=== PATIENT | male | born 1960 | race Caucasian/White ===

== ENCOUNTER 2016-11-01 08:51 | Inpatient (IN) | payer MEDICAID ==
[~2016-11-01] VITALS: Ht 185.4 cm; Wt 83.1 kg
[~2016-11-01 08:51] MED LIST: ASPIRIN PO; CLINDAMYCIN300 M1 PO; GLU10 PO; GLU500 PO; JANUVIA100 M1 PO; KEFLEX500 MG PO; LAC PO; LISINOPRIL20 MG PO; NAPROXEN500 MG PO
--- NOTE | 2016-11-01 09:04 | NUR ---
Prmiary nurse KRISTINA Oneil a bedside to perform assessment.
--- NOTE | 2016-11-01 09:15 | NUR ---
PT PRESENTS TO ED WITH C/O SOB, CONSTIPATION, AND SWELLING X 1 WEEK. PT STATES SWELLING STARTED IN HIS FACE, TRAVELED DOWN NECK, NOW HE SEE'S IT IN HIS ANKLES. UPON ASSESSMENT SWELLING NOTED TO FACE AND JAW, NO VISIBLE SWELLING IN ANKLES. PT REPORTS SOB, AT TIME OF ASSESSMENT RESP EQUAL AND UNLABORED, NO DISTRESS NOTED LUNG SOUNDS CLEAR HANNY IN ALL LUNG KLEIN. PT REPORTS PASSING SM AMOUNT OF STOOL YESTERDAY, BUT LAST REGULAR BOWEL MOVEMENT WAS 1 WEEK AGO. PT C/O GEN ABD PAIN, DENIES N/V, ABD SOFT TO PALPATION. PT CHANGED INTO GOWN, CONNECTED TO CARDIORESP MONITORS, DR FRANKLIN AT BEDSIDE FOR MSE.
[2016-11-01 09:27] LABS: BASOPHIL % 0.4 % (0-2); PLATELET COUNT 247 x10^3mcL (130-400)
[2016-11-01 09:28] LABS: RED CELL DISTRIBUTION WIDTH 16.9 % (11.5-14.5)
[2016-11-01 09:42] LABS: CALCIUM 8.4 mg/dL (8.5-10.1); CARBON DIOXIDE 26.4 mmol/L (21-32); CHLORIDE SERUM 105 mmol/L (98-107); CREATININE SERUM 0.8 mg/dL (0.7-1.3); GFR1 > 60 mL/min; GLUCOSE SERUM 213 mg/dL (74-106); POTASSIUM SERUM 3.9 mmol/L (3.5-5.1); SODIUM SERUM 139 mmol/L (136-145)
[2016-11-01 09:46] LABS: ALKALINE PHOSPHATASE 176 U/L (46-116); ALT/SGPT 22 U/L (16-63); AST/SGOT 20 U/L (15-37); BILIRUBIN TOTAL 1.22 mg/dL (0.20-1.00); TOTAL PROTEIN, SERUM 6.5 g/dL (6.4-8.2)
[2016-11-01 09:49] LABS: ALBUMIN 2.4 g/dL (3.4-5.0)
--- NOTE | 2016-11-01 10:53 | NUR ---
REPORT CALLED TO ALBERTINA ACEVEDO TO ASSUME CARE OF OT POST TRANSFER TO TELE UNIT.
[2016-11-01 11:25] LABS: UA SPECIFIC GRAVITY 1.025 (1.005-1.035); microscopic required? YES; urine erythrocyte 3+ (NEGATIVE)
--- NOTE | 2016-11-01 11:30 | NUR ---
PATIENT RECIEVED AT THIS TIME VIA [facility]. ACCOMPANIED BY ER NURSE. PATIENT ABLE TO AMBULATE FROM [facility] TO BED SAFELY. PLACED ON TELE #23 HR(106) BP(159/116) MAP(132) TEMP(98.3) O2(98%RA). IV TO THE LAC SALINE LOCK WITHIN NORMAL LIMITS. SCDS PLACED, EDUCATION ON USE PROVIDED. STUDENT DOCTORS AT BEDSIDE. ALL SAFETY MEASURES IN PLACE AND REVIEWED. WILL CONTINUE TO MONITOR.
[2016-11-01 11:55] LABS: CHOLESTEROL/HDL RATIO 3.6; MAGNESIUM 1.7 mg/dL (1.8-2.4); PHOSPHOROUS 3.6 mg/dL (2.5-4.9)
[2016-11-01 11:59] LABS: T3 TOTAL 0.91 ng/mL
[2016-11-01 12:02] LABS: FREE T4 1.16 ng/dL (0.76-1.46); FREE THYROXINE INDEX 2.7 ug/dL (1.4-4.5); T4(THYROXINE) 7.7 ug/dL (4.7-13.3)
[2016-11-01 12:42] VITALS: BP 130/78
--- NOTE | 2016-11-01 12:52 | NUR ---
echocardiogram pending patient having ultrasound
[2016-11-01 13:12] VITALS: BP 159/116
--- NOTE | 2016-11-01 15:24 | NUR ---
DR ROMO IN TO ASSESS PATIENT AT THIS TIME. PATIENT AWAKE, ALERT, MOTHER AT BEDSIDE, NO SIGNS OF DISTRESS NOTED, WILL CONTINUE TO MONITOR.
[2016-11-01 15:33] LABS: AMPHETAMINE QUAL UR POSITIVE (NEG <=1000)
--- NOTE | 2016-11-01 18:10 | NUR ---
PATIENT AWAKE AND TALKING TO FAMILY AT BEDSIDE. NO SIGNS OF DISTRESS, NO SHORTNESS OF BREATH. ALL SAFETY MEASURES IN PLACE. WILL CONTINUE TO MONITOR.
[2016-11-01 18:29] VITALS: BP 128/94
--- NOTE | 2016-11-01 18:41 | NUR ---
IVF RATE CHANGED TO 10 ML/HR AT THIS TIME PER MD ORDER.
--- NOTE | 2016-11-01 19:14 | NUR ---
BEDSIDE REPORT GIVEN TO NOC SHIFT NURSE AT THIS TIME. PATIENT AWAKE, FAMILY AT BEDSIDE, ALL SAFETY MEASURES IN PLACE, WILL ENDORSE CARE.
--- NOTE | 2016-11-01 19:50 | NUR ---
REC'D PT FROM DAY NURSE. PT LAYING IN BED. AAOX4, SPEECH CLEAR, FOLLOWS COMMANDS. NO SIGNS OF DISTRESS NOTED. BREATHING EVEN/UNLABORED ON RA. ON TELE 23. DENIES CP, DIZZINESS, OR PALPITATIONS. TRACE EDEMA TO BLE. REPORTS SOME NUMBING TO HANNY HANDS AND FEET. DENIES ABD PAIN, TENDERNESS, OR N/V. REPORTS LOOSE STOOL. VOIDING FREELY. STRAINING URINE. MILD GEN WEAKNESS. AMBULATORY. BLE SKIN DRY AND FLAKEY. DENIES PAIN AT THIS TIME. CALL LIGHT WITHIN REACH, BED AT LOWEST POSITION. WILL CONTINUE TO MONITOR.
[2016-11-01 21:12] VITALS: BP 126/93
[2016-11-02] VITALS (11 sets, daily range): BP systolic 100–129; BP diastolic 75–100
--- NOTE | 2016-11-02 00:57 | NUR ---
PT RESTING IN BED WITH EYES CLOSED. LAYING ON R SIDE. NO SIGNS OF DISTRESS NOTED. BREATHING EVEN/UNLABORED ON RA. CALL LIGHT WITHIN REACH, BED AT LOWEST POSITION. WILL CONTINUE TO MONITOR.
[2016-11-02 06:20] LABS: BASOPHIL % 0.4 % (0-2); CALCIUM 8.1 mg/dL (8.5-10.1); CARBON DIOXIDE 25.8 mmol/L (21-32); CHLORIDE SERUM 107 mmol/L (98-107); CREATININE SERUM 0.8 mg/dL (0.7-1.3); GFR1 > 60 mL/min; GLUCOSE SERUM 160 mg/dL (74-106); MAGNESIUM 1.8 mg/dL (1.8-2.4); PHOSPHOROUS 4.2 mg/dL (2.5-4.9); PLATELET COUNT 190 x10^3mcL (130-400); POTASSIUM SERUM 3.9 mmol/L (3.5-5.1); SODIUM SERUM 141 mmol/L (136-145)
[2016-11-02 07:13] LABS: RED CELL DISTRIBUTION WIDTH 16.5 % (11.5-14.5)
--- NOTE | 2016-11-02 07:21 | NUR ---
ASLEEP AT CHANGE OF SHIFT, RESP EVEN AND UNLABORED.
--- NOTE | 2016-11-02 08:00 | NUR ---
PATIENT IS RESTING WITH FAMILY AT BEDSIDE. LUNG SOUNDS ARE CLEAR BUT DIMINISHED IN BILATERAL BASES, AND PATIENT COMPLAINS OF SOB. CHEST RISE IS SATING 93% PATIENT IS IN NO APPARENT DISTRESS, RR IS 20.PATIENT IS TELE 23 NSR. NO EDEMA NOTED, CAP REFILL IS LESS THAN 3. BOWEL SOUNDS ARE HYPERACTIVE AND PATIENT STATES DIARRHEA SINCE 11/01 X6. PATIENT IS ABLE TO AMBULATE SELF TO BATHROOM, GAIT IS STEADY. PATIENT INSTRUCTED ON USE OF URINAL IN ORDER TO STRAIN URINE. CALL LIGHT IS WITHIN REACH, BED IS LOCKED AND IN LOW POSTION AND SIDE RAILS ARE UP. SCDS ARE NOT ON DUE TO FREQUENT BATHROOM TRIPS
--- NOTE | 2016-11-02 08:42 | NUR ---
MOM BEDSIDE. REVIEWED AM MEDS, TOOK WITHOUT DIFFICULTY. EXPLAINED THORACENTESIS AND THAT DOCTOR WOULD BE IN ROOM SHORTLY TO EXPLAIN MORE THOROUGHLY. WITNESSED SIGNATURE ON CONSENT.
--- NOTE | 2016-11-02 08:57 | NUR ---
DR MALAVE IN TO SEE PATIENT AND MOM. EXPLAINED PROCEDURE, VERBALIZED UNDERSTANDING.
--- NOTE | 2016-11-02 09:22 | NUR ---
REPORTS SOME SOB, RT GIVING RX.
--- NOTE | 2016-11-02 10:30 | NUR ---
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 I AM MY SONS PRIMARY CAREGIVER AND I AM HAVING A REALLY HARD TIME WITH THINGS, AND WOULD LIKE TO KNOW ABOUT RESOURCES. ALSO MY SON HAS HAD A REALLY HARD TIME COPING WITH THINGS, HE IS DEPRESSED, HE GOT A DIVORCE, HIS THREE KIDS DO NOT WANT ANYTHING TO DO WITH HIM AND I KEEP TELLING HIM TO TALK TO SOMEONE, HE REALLY NEEDS HELP HE IS NOT COPING WELL AT ALL." MD TALAVERA NOTIFIED OF FAMILIES REQUEST AND STATED, "I WILL TAKE CARE OF IT."
--- NOTE | 2016-11-02 11:07 | NUR ---
PATIENT SLEEPING ON RIGHT SIDE, URINAL HAS APPROX 200 MLS OF URINE, STRAINED PER MD ORDER, NO PARTICLES NOTED. PATIENT AWOKE WHEN TAKING URINAL FROM BEDSIDE TABLE, ASKED HIM IF HE HAD PAIN ON URINATION, PATIENT DENIED. PATIENT INQUIRED ON REASON FOR STRAINING URINE. PATIENT EDUCATED, VERBALIZED UNDERSTANDING AND STATED, "MY BROTHER HAS PROBLEMS WITH STONES BUT I NEVER HAVE." CALL LIGHT IS WITHIN REACH, SIDE RAILS ARE UP, BED LOCKED AND IN LOW POSITION, AND URINAL IS RETURNED TO SIDE RAIL FOR PATIENT USE.
--- NOTE | 2016-11-02 12:00 | NUR ---
PATIENTS URINE WAS STRAINED, SMALL WHITE PARTICLE VISIBLE. PATIENT IS RESTING IN BED. PATIENT IS IN NO APPARENT DISTRESS, DENIES PAIN, AND SOB AT THIS TIME. CALL LIGHT IS WITHIN REACH, SIDE RAILS ARE UP AND BED IS LOCKED AND IN LOW POSITION.
--- NOTE | 2016-11-02 12:08 | NUR ---
SPOKE WITH ALEXANDER APODACA AND JULIO. MADE AWARE PATIENT REPORTS DEPRESSION DUE TO DISEASE PROCESS.
--- NOTE | 2016-11-02 12:20 | NUR ---
MOTHER MICHAELLE, REPORTS THAT SHE TAKES CARE OF PATIENT AND IS HAVING A HARD TIME FINANCIALLY AND IS REQUESTING TO SPEAK WITH [employer] FOR RESOURCES. SPOKE WITH CHIVO HAYDEN AND MADE HIM AWARE.
--- NOTE | 2016-11-02 12:50 | NUR ---
CATRACHO WALDRON SPOKE WITH MICHAELLE AND PATIENT.
--- NOTE | 2016-11-02 13:30 | NUR ---
HEPLOCKED TO GO TO THORACENTESIS. OFF FLOOR VIA WHEELCHAIR. SPOKE WITH DR TALAVERA TO SEE IF HE WANTS TO ORDER TESTS ON FLUID.
--- NOTE | 2016-11-02 14:15 | NUR ---
PATIENT RETURNED FROM THORACENTESIS PROCEDURE, 1650 ML REMOVED. PATIENT RESTING IN BED. PATIENT STATES HE CAN BREATHE EASIER, PULE OXYGEN READS 96%. SITE ASSESSED, NO DRAINAGE OR HEMATOMA NOTED. PATIENT STATES PAIN OF 3/10 HEADACHE, MD NOTIFIED AND WILL FOLLOW UP. CALL LIGHT IS WITHIN REACH, SIDE RAILS ARE UP, IV IS INFUSING. SITE IS CLEAR OF SWELLING, REDNESS AND PAIN.
--- NOTE | 2016-11-02 14:31 | NUR ---
SPOKE WITH DR TALAVERA CONCERNING WHETHER COUMADIN TO BE REORDERED TODAY, DIET ORDER AND MADE AWARE 650ML OUT.
--- NOTE | 2016-11-02 15:33 | NUR ---
DR. FINN IN TO SEE PATIENT. PATIENT NOT IN DISTRESS, CHEST RISE EVEN AND UNLABORED. CALL LIGHT IS WITHIN REACH, SIDE RAILS ARE UP AND BED IS LOCKED AND IN LOW POSITION.
--- NOTE | 2016-11-02 18:12 | NUR ---
AMBULATING IN ROOM, ATE DINNER, NO DISTRESS NOTED.
[2016-11-02 19:34] LABS: SOURCE FLUID THORACENTESIS
[2016-11-02 19:35] LABS: APPEARANCE FLUID HAZY; COLOR FLUID YELLOW; LYMPHOCYTE FLUID 56 %; MONOCYTE FLUID 8 %; RBC FLUID 46 /cumm; WBC FLUID 109 /cumm
--- NOTE | 2016-11-02 19:44 | NUR ---
PT SEEN, ASLEEP BUT EASILY AROUSABLE, ALERT AND ORIENTED, DENIES HEADACHE OR DIZZINESS, BREATHING EVEN AND UNLABORED, NO SOB, LUNG SOUNDS DIMINISHED WITH EXP WHEEZING, ON ROOM AIR WITH NO RESP DISTRESS NOTED, ON TELE#23 NSR, DENIES CHEST PAIN, IVF INFUSING WELL, PULSES PALPABLE, NO EDEMA NOTED, AMBULATORY WITH STEADY GAIT, ABD ROUND AND SOFT WITH ACTIVE BS, NO BM AT THIS TIME, VOIDING FREELY, NO DISTRESS NOTED, WILL KEEP TO MONITOR.
[2016-11-03] VITALS (9 sets, daily range): BP systolic 101–134; BP diastolic 68–97
--- NOTE | 2016-11-03 05:15 | NUR ---
PT ASLEEP BUT EASILY AROUSABLE, SLEPT MOST OF NIGHT, IVF INFUSING WELL, MORNING BLOOD SUGAR-170 MG/DL, MADE DR VALLADARES AWARE THAT PT IS NPO THIS MORNING DUE TO POSS US GUIDED THORACENTESIS, PER DR VALLADARES THAT OKAY TO HOLD GLUCOTROL PO AND RISS 3 UNITS, ON ROOM AIR WITH NO RESP DISTRESS NOTED, WILL KEEP TO MONITOR.
--- NOTE | 2016-11-03 05:31 | NUR ---
PT AWAKE AND WALKED TO THE RESTROOM, AFTER CAME BACK TO RESTROOM PT STATED THAT FEEL SOB, PT'S SPO2-96% ON ROOM AIR, PLACED PT ON OXYGEN 2L VIA NC, NO DISTRSS NOTED, WILL KEEP TO MONITOR.
[2016-11-03 06:26] LABS: CALCIUM 8.2 mg/dL (8.5-10.1); CARBON DIOXIDE 28.1 mmol/L (21-32); CHLORIDE SERUM 106 mmol/L (98-107); CREATININE SERUM 0.9 mg/dL (0.7-1.3); GFR1 > 60 mL/min; GLUCOSE SERUM 166 mg/dL (74-106); LACTIC DEHYDROGENASE (LDH) 246 U/L (100-190); POTASSIUM SERUM 3.7 mmol/L (3.5-5.1); SODIUM SERUM 142 mmol/L (136-145)
--- NOTE | 2016-11-03 08:23 | NUR ---
PATIENT IS LAYING DOWN IN BED. PATIENT IS IN NOT APPARENT DISTRESS, CHEST RISE IS EQUAL. PATIENT SAT UP IN BED, LUNGS AUSCULTATED, DIMINSHED BREATHE SOUNDS BILATERAL BASES, TOPS OF LUNGS ARE CLEAR. PATIENT DENIES PAIN, NAUSEA, BUT COMPLAINS OF DIARRHEA. WILL FOLLOW UP WITH MEDICATION. PATIENT HAS ACTIVE BOWEL SOUNDS IN ALL QUADRANTS. NO EDEMA NOTED, PULSES ARE PRESENT AND CAP REFILL IS LESS THAN 3 SECONDS. CALL LIGHT IS WITHIN REACH, SIDE RAILS ARE UP AND BED IS LOCKED.
--- NOTE | 2016-11-03 08:36 | NUR ---
DR MALAVE IN TO SEE PATIENT.
--- NOTE | 2016-11-03 10:08 | NUR ---
MOM ON FLOOR, REQUESTED TO SPEAK WITH . DR TALAVERA CURRENTLY TALKING WITH MOM.
--- NOTE | 2016-11-03 10:18 | NUR ---
PATIENT IS LAYING IN BED. PATIENT STATED IV IS "LEAKING" UPON ASSESSMENT IV LEAKING FLUID WHEN FLUSHED. IV CATHETER REMOVED, CATHETER TIP IS INTACT, SITE IS COVERED WITH GUAZE AND TAPE. PATIENT DENIES SOB, CHEST RISE IS EQUAL. CALL LIGHT IS WITHIN REACH, BED IS LOCKED AND IN LOW POSITION AND SIDE RAILS ARE UP.
--- NOTE | 2016-11-03 13:42 | NUR ---
FAMILY BEDSIDE, NO DISTRESS NOTED.
--- NOTE | 2016-11-03 14:18 | NUR ---
SPOKE WITH DR TALAVERA CONCERNING NO IV ACCESS, NO LONGER ON TELE. OKAY TO LEAVE IV OUT AND HE WILL SWITCH LASIX TO PO.
--- NOTE | 2016-11-03 14:21 | NUR ---
OFF FLOOR VIA WHEELCHAIR TO ULTRASOUND FOR THORACENTESIS.
--- NOTE | 2016-11-03 14:48 | NUR ---
PATIENT RETURNED TO FLOOR FROM RADIOLOGY. PATIENT RESTING IN BED. NO DRAINAGE, SWELLING, HEMATOMA NOTED. PATIENT DENIES SOB, AND PAIN. CHEST RISE IS EQUAL, AND UNLABORED. RADIOLOGY NURSE STATES 1100 ML OF FLUID WAS REMOVED. CALL LIGHT IS WITHIN REACH, SIDE RAILS ARE UP AND BED IS LOCKED.
--- NOTE | 2016-11-03 15:28 | NUR ---
US GUIDED THORACENTESIS COMPLETED BY DR VALERIO, SPECIMEN TO LAB; PER PATIENT'S NURSE JONNIE NO DIAGNOSTIC TESTS NEEDED ON TODAY'S SPECIMEN.
--- NOTE | 2016-11-03 15:54 | NUR ---
PATIENT IS RESTING, WATCHING TELEVISION, DENIES PAIN AT THIS TIME. LEFT BACKSIDE WHERE PROCEDURE ASSESSED, NO SWELLING, REDNESS OR DRAINAGE NOTED. NO SIGNS OF HEMATOMA OBSERVED. PATIENTS RR 16, UNLABORED AND EVEN. PATIENT DENIES SOB. CALL LIGHT IS WITHIN REACH, SIDE RAILS UP, BED LOCKED AND SCDS ARE IN PLACE.
--- NOTE | 2016-11-03 16:45 | NUR ---
PATIENT LAYING IN BED RESTING, WATCHING TELEVISION. PATIENT DENIES SOB, PAIN AND NAUSEA. LEFT BACKSIDE WHERE THORACENTESIS PERFORMED ASSESSED. SITE IS ABSENT OF DRAINAGE, REDNESS, SWELLING AND HEMATOMA. PATIENTS CHEST RISE IS EQUAL AND UNLABORED. PATIENT DOESNT APPEAR TO BE IN DISTRESS. CALL LIGHT IS WITHIN REACH, SIDE RAILS ARE UP, SCDS ARE ON AND BED IS LOCKED AND IN LOW POSITION.
--- NOTE | 2016-11-03 17:06 | NUR ---
RECEIVED CALL FROM LAB WANTING TO CONFIRM NO TESTS NEEDED ON FLUID REMOVED FROM TODAYS THORACENTESIS. CONFIRMED WITH DR TALAVERA, NO TESTS. LAB MADE AWARE.
--- NOTE | 2016-11-03 17:39 | NUR ---
ASSISTED WITH DINNER, NO DISTRESS NOTED.
--- NOTE | 2016-11-03 18:25 | NUR ---
CHIVO BUSTILLO BEDSIDE GIVING INFORMATION CONCERNING RESOURCES AFTER DISCHARGE.
--- NOTE | 2016-11-03 19:55 | NUR ---
PT SEEN, ASLEEP BUT EASILY AROUSABLE, ALERT AND ORIENTED, DENIES HEADACHE OR DIZZINESS, BREATHING EVEN AND UNLABORED, NO SOB, LUNG SOUNDS DIMINISHED HANNY BASE, ON ROOM AIR WITH NO RESP DISTRESS NOTED, RT PROTOCOL, DENIES CHEST PAIN, RE-INSERTED IV TO LFA, PULSES PALPABLE, NO EDEMA NOTED, AMBULATORY WITH STEADY GAIT, ABD ROUND AND SOFT WITH ACTIVE BS, NO BM AT THIS TIME, VOIDING FREELY, NO DISTRESS NOTED, WILL KEEP TO MONITOR.
--- NOTE | 2016-11-03 22:30 | NUR ---
CALLED RADIOLOGY REGARDING THAT PT HAD CXR ORDERED @ 1814, PER KEYBOARD SPECIALIST UNABLE TO HAVE CXR DONE AT THAT TIME DUE TO ER PTS, DR VALLADARES AWARE, PER KEYBOARD SPECIALIST WILL HAVE CXR DONE WITHIN 30 MINS.
--- NOTE | 2016-11-04 05:42 | NUR ---
PT AWAKE AT THIS TIME, SLEPT ON AND OFF WHOLE NIGHT, SL TO LFA, THIS MORNING BLOOD SUGAR-123 MG/DL WITH NO RISS, PT C/O OF BLE PAIN, NORCO 1 TAB VIA ORAL ADMINISTERED, NO BM DURING THE SHIFT, BREATHING EVEN AND UNLABORED ON ROOM AIR, NO SOB OR RESP DISTRESS NOTED, NO DISTRESS NOTED, WILL KEEP TO MONITOR.
[2016-11-04 06:22] VITALS: BP 127/58
[2016-11-04 06:30] LABS: CALCIUM 8.4 mg/dL (8.5-10.1); CARBON DIOXIDE 29.6 mmol/L (21-32); CHLORIDE SERUM 106 mmol/L (98-107); CREATININE SERUM 0.9 mg/dL (0.7-1.3); GFR1 > 60 mL/min; GLUCOSE SERUM 108 mg/dL (74-106); POTASSIUM SERUM 4.3 mmol/L (3.5-5.1); SODIUM SERUM 141 mmol/L (136-145)
--- NOTE | 2016-11-04 08:00 | NUR ---
RECEIVED PATIENT ALERT AND ORIENTED TIMES FOUR. PATIENT DENIES PAIN AT THIS TIME BUT STATE HE HAS NEUROPATHY AND HE DID NOT SLEEP WELL LAST NIGHT TILL RECEIVED NORCO FOR PAIN. PATIENT STATES HE WOKE UP SEVERAL TIMES AND JUST COULD NOT SLEEP. LAST BLOOD SUGAR WAS AT 123 AND PATIENT TOLERATED DIET AND FLUDIS AND ATE EVERYTHING ON THE TRAY THIS AM. HE DID NOT REQUEST MORE FOOD THOUGH. PATIENT HAS AN AIC AT 8.9 AND IS CLEARLY NOT TAKING HIS MEDICATION OR FOLLOWING HIS DIET DIRRECTED. PATIENT HAS NOTED VERY DRY AND SCALEY SKIN TO THE LOWER EXTREMTIES AND MINIMAL. TRACE EDEAM NOTED. PATIENT SKIN PALLOR IS PALE AND HE SEEMS HE IS UNDERWEIGHT FOR HIS SIZE. VITALS AT THIS TIME AT 98.0, 86, 20, 127/56, 99% ON ROOM AIR. PATIENT HAS NOTED TO HAVE USED METHA AMPHETAMINES AND WAS PRESENT IN HIS URINE. PATIENT HAS NOTED TO BE A SMOKER WELL. THE LUNGS ARE OPEN AND WITH SOME SCATTER RALES BUT HE IS TOLERATING A DEEP BREATH AND DOES NOT APPEAR LABORED AT THIS TIME. PATIENT AHS BEEN AMBLATORY AND DENIES USE OF A CANE OR DEVICE AT HOME. NOTED PATIETN HAS BEEN WITH TWO THROACENTESIS AND HAD BEEN TO EITHER SIDE WITH OUTPUT AT 1100ML AND 1650ML. PATINET HAS ONE BANDAID TO THE LEFT FLANK OF THE BACK AND NO DRAINAGE NOTED. PATIENT AHS NOTED RENAL CALCULI AND HAVE BEEN STRAINING URINE INDICATE.D ON FLOWMAX AND LASIX. NOTE DLASO THE CARDIAC ISSUES OF EJECTION FRACTION CHANGES IN THE FEW MONTHS FROM 55% TO NOW AT 20%. DR ROMO, HUMA AND ERIN ON THE CASE FOR IS ISSUES. POSSIBLE DISCHARGE HOME PLANNED FOR TODAY.
--- NOTE | 2016-11-04 09:41 | NUR ---
SEEN BY DR MALAVE AND STAFF AND PLAN OF CARE DISCUSSED. PATIENT DENIES ANY PAIN OR DISTRESS AT THIS TIME. HE HAS BEEN SO FAR COOPERATIVE WITH CARE. REFUSED THE GLUCOPHAGE THIS AM AND STATES HE RECEIVED ALREADY. IT WAS NOT SCANNED AND WAS NOT DUE TO BREAKFAST. BASICALY THE PATIENT WENT ON TO INDICATE THE GLYPIZIDE HE RECEIVED WAS POWERFUL AND HE FELT HE MAY BE RECEIVING TOO MUCH FOR HIS DIABETES AND IS WORRIED HIS SUGAR WILL DROP. HELD THE GLUCOPHAGE PER HIS STATEMENT. PER HIM HE RECEIVED WITH THE GLYPIZIDE THIS AM FROM THE PREVIOUS SHIFT.
[2016-11-04 10:06] VITALS: BP 120/89
[2016-11-04] MEDS ORDERED: L40 PO (10:11)
[2016-11-04] MEDS ORDERED: CYMBALTA30 M1 PO (10:12)
[2016-11-04] MEDS ORDERED: ZES20 PO (10:13)
[2016-11-04] MEDS ORDERED: COR3 PO (10:15)
[2016-11-04] MEDS ORDERED: COUMADIN2.5 MG PO (10:22)
[2016-11-04] MEDS ORDERED: NOR10 PO (10:47)
[2016-11-04] MEDS ORDERED: LIPI20 PO (10:48)
[2016-11-04 10:49] VITALS: BP 127/58
[2016-11-05] MEDS ORDERED: COUMADIN2.5 MG PO (11:36)
[2016-11-05] MEDS ORDERED: COREG3.125 MG PO (11:36)
[2016-11-05] MEDS ORDERED: ZESTRIL20 MG PO (11:38)
[2016-11-05] MEDS ORDERED: CYMBALTA30 M1 PO (11:38)
[2016-11-05] MEDS ORDERED: LASIX20 MG PO (11:38)
== END 2016-11-04 13:00 | disposition home or self-care (01) | DRG 194 ==
LOC: ED 08:51 → DU 10:26 → MU 10:26 → DU 11:15 → MU 11:27 → DU 11:35 → MU 11-03 07:10
PROVIDERS: Emergency Medicine; ADMIT Family Medicine
PROC: 0W993ZZ Drainage of Right Pleural Cavity, Percutaneous Approach (ICD-10-PCS; principal; 2016-11-02)
PROC: 0W9B3ZZ Drainage of Left Pleural Cavity, Percutaneous Approach (ICD-10-PCS; 2016-11-03)
DX: I11.0 Hypertensive heart disease with heart failure (principal); N17.0 Acute kidney failure with tubular necrosis; E43 Unspecified severe protein-calorie malnutrition; D68.69 Other thrombophilia; I24.0 Acute coronary thrombosis not resulting in myocardial infarction; E11.42 Type 2 diabetes mellitus with diabetic polyneuropathy; E11.65 Type 2 diabetes mellitus with hyperglycemia; I42.0 Dilated cardiomyopathy; I50.43 Acute on chronic combined systolic (congestive) and diastolic (congestive) heart failure; F15.129 Other stimulant abuse with intoxication, unspecified; F12.10 Cannabis abuse, uncomplicated; E83.42 Hypomagnesemia; R80.9 Proteinuria, unspecified; F32.9 Major depressive disorder, single episode, unspecified; K59.00 Constipation, unspecified; G89.29 Other chronic pain; N20.0 Calculus of kidney; R31.9 Hematuria, unspecified; M47.896 Other spondylosis, lumbar region; Z68.24 Body mass index [BMI] 24.0-24.9, adult; Z79.84 Long term (current) use of oral hypoglycemic drugs; F17.210 Nicotine dependence, cigarettes, uncomplicated
CPT/HCPCS: 32555; 83880; 84439; 94150; 97110-GP; 97116-GP; C1729; J0696; J1940; J2001; J7030; J7620; Q0092

== ENCOUNTER 2016-11-05 09:13 | Inpatient (IN) | payer MEDICAID ==
[~2016-11-05] VITALS: Ht 185.4 cm; Wt 80.0 kg
[~2016-11-05 09:13] MED LIST changes: +COR3 PO; +COUMADIN2.5 MG PO; +CYMBALTA30 M1 PO; +L40 PO; +LIPI20 PO; +NOR10 PO; +ZES20 PO
--- NOTE | 2016-11-05 09:30 | NUR ---
PORTABLE RADIOLOGY AT BEDSIDE FOR CXR AT THIS TIME
--- NOTE | 2016-11-05 09:41 | NUR ---
PT BIB FAMILY MEMBER FOR C/O LEFT SIDE CHEST PAIN 05/16 "SHARP" NON RADIATING THAT PT REPORTS HAS BEEN INTERMITTENT, STS STARTED 1 WEEK AGO AND REPORTS WORSENED SINCE 0400 IN THE MORNING, PT REPORTS WOKE UP FROM PAIN, STS FEELING SHORT OF BREATH AND ALSO REPORTS "I SOMETIMES HAVE TROUBLE TALKING TOO" PT SPEAKING IN CLEAR AND COMPLETE SENTENCES AND NO SOB NOTED AT THIS TIME, PT REPORTS HE WAS RECENTLY DISCHARGED FROM HERE FOR SAME SX, PT REPORTS "THEY TOOK OUT FLUID FROM BACK THERE" POINTING AT LEFT AND RIGHT SIDE OF UPPER BACK, PT LS CTA BILATERALLY, RESP EVEN AND UNLABORED, IN NO ACUTE DISTRESS, PT REPORTS HE DID NOT TAKE HIS ASA TODAY, PT IN NO ACUTE DISTRESS, PLACED ON FULL MONITORS, SIDE RAILS UPX2, CALL LIGHT WITHIN REACH, WILL CONTINUE TO MONITOR
[2016-11-05 09:51] LABS: BASOPHIL % 0.3 % (0-2); PLATELET COUNT 195 x10^3mcL (130-400)
[2016-11-05 09:52] LABS: RED CELL DISTRIBUTION WIDTH 16.4 % (11.5-14.5)
[2016-11-05 09:56] LABS: CALCIUM 8.3 mg/dL (8.5-10.1); CARBON DIOXIDE 33.1 mmol/L (21-32); CHLORIDE SERUM 104 mmol/L (98-107); CREATININE SERUM 0.9 mg/dL (0.7-1.3); GFR1 > 60 mL/min; GLUCOSE SERUM 182 mg/dL (74-106); POTASSIUM SERUM 4.3 mmol/L (3.5-5.1); SODIUM SERUM 140 mmol/L (136-145)
[2016-11-05 10:01] LABS: ALKALINE PHOSPHATASE 154 U/L (46-116); ALT/SGPT 23 U/L (16-63); AST/SGOT 24 U/L (15-37); BILIRUBIN TOTAL 0.93 mg/dL (0.20-1.00); TOTAL PROTEIN, SERUM 6.2 g/dL (6.4-8.2)
[2016-11-05 10:04] LABS: ALBUMIN 2.4 g/dL (3.4-5.0)
--- NOTE | 2016-11-05 11:22 | NUR ---
PER PT "I DID NOT TAKE MY COUMADIN TODAY" PT BROUGHT RX FROM MD STATING "TO NOT TAKE ON Oct, BUT TO TAKE 2.5 MG MONDAY AND MONDAY BEFORE APPOINTMENT ON MONDAY, PT IS REQUIRED TO BE ANTICOAGULATED FOR [address] ROMO, OBTAIN ADEQUATE COUMADIN DOSE WITH PRIMARY" DR. VIZCAINO MADE AWARE, OKAY BY DR. VIZCAINO FOR PT TO TAKE AT HOME PRESCRIBED COUMADIN DOSE FOR TODAY (MONDAY)
--- NOTE | 2016-11-05 11:32 | NUR ---
PT DENIES ANY PAIN AT THIS TIME AFTER AUTOMOBILE BODY WORKER, REPORTS "JUST MY BREATHING" PT RESP EVEN AND UNLABORED, IN NO ACUTE DISTRESS, ON FULL MONITORS, CALL LIGHT WITHIN REACH, WILL CONTINUE TO MONITOR, MRSA SWAB COLLECTED AND SENT TO [facility]
[2016-11-05] MEDS ORDERED: COUMADIN2.5 MG PO (11:36)
[2016-11-05] MEDS ORDERED: COREG3.125 MG PO (11:36)
[2016-11-05] MEDS ORDERED: ZESTRIL20 MG PO (11:38)
[2016-11-05] MEDS ORDERED: LASIX20 MG PO (11:38)
[2016-11-05] MEDS ORDERED: CYMBALTA30 M1 PO (11:38)
[2016-11-05 12:00] LABS: UA SPECIFIC GRAVITY 1.025 (1.005-1.035); microscopic required? YES; urine erythrocyte 2+ (NEGATIVE)
[2016-11-05 12:02] LABS: AMPHETAMINE QUAL UR NONE DETECTED (NEG <=1000)
--- NOTE | 2016-11-05 12:21 | NUR ---
REPORT GIVEN TO KRISTINA HINDS TELE FLOOR TO ASSUME CARE OF PT AFTER TRANSPORT TO TELE
--- NOTE | 2016-11-05 12:57 | NUR ---
DR. VIZCAINO MADE AWARE OF PT RECEIVING 81 MG OF ASA EARLIER HERE IN ED, PER DR. VIZCAINO FOR PT TO HAVE ORDERED 325 MG ASA PO, WILL CARRY OUT ORDERS
--- NOTE | 2016-11-05 13:13 | NUR ---
MEDICATIONS ADMINISTERED PER MD ORDER, PLEASE SEE EMAR, PT TOLERATED WELL, PT RESTING IN BED IN A POSITION OF COMFORT, ON FULL MONITORS CALL LIGHT WITHIN REACH, FAMILY MEMBER AT BEDSIDE AT THIS TIME, REPORTS 3/10 PAIN TO CHEST, OKAY BY DR. VIZCAINO FOR TRANSPORT OF PT TO TELE AFTER ORDERED MEDICATIONS
[2016-11-05 13:31] VITALS: BP 141/96
[2016-11-05 13:37] VITALS: BP 141/96
[2016-11-05 13:50] VITALS: BP 141/96
--- NOTE | 2016-11-05 13:51 | NUR ---
RECEIVED PATIENT FROM ED VIA GUERNEY, PATIENT ALERT AND ORIENTED MOTHER AT BEDSIDE, TELE # 51 SR, IV ACCESS TO LFA WNL, C/O PAIN TO CHEST UPON DEEP RESPIRATIONS, WILL MEDICATE ORDERED, ORIENTED PATIENT TO ROOM AND SURROUNDINGS, BED IN LOW POSITION, BED RAILS UP X 2, CALL LIGHT WITHIN REACH, WILL ENDORSE CARE TO PRIMARY NURSE LIZET ACEVEDO
--- NOTE | 2016-11-05 13:52 | NUR ---
PT RESTING IN BED. DENIES PAIN. NO SOB NOTED. WILL CONTINUE MONITOR.
[2016-11-05 14:34] LABS: MAGNESIUM 1.6 mg/dL (1.8-2.4); PHOSPHOROUS 3.5 mg/dL (2.5-4.9)
[2016-11-05 14:37] LABS: CHOLESTEROL/HDL RATIO 2.2
[2016-11-05 14:45] LABS: FREE T4 1.17 ng/dL (0.76-1.46); FREE THYROXINE INDEX 2.8 ug/dL (1.4-4.5); T4(THYROXINE) 8.1 ug/dL (4.7-13.3)
[2016-11-05 14:49] LABS: T3 TOTAL 0.8 ng/mL
[2016-11-05 17:15] VITALS: BP 145/88
--- NOTE | 2016-11-05 19:00 | NUR ---
PT IS STABLE. DENIES PAIN. NO SOB NOTED. GAVE REPORT TO NEXT SHIFT NURSE.
[2016-11-05 19:35] VITALS: BP 116/77
--- NOTE | 2016-11-05 19:35 | NUR ---
RECEIVED PT AWAKE ALERT AND VERBALLY RESPONSIVE.BREATHING EASY AND NON-LABORED,TOLERATING ROOMAIR AT THIS TIME.O2 SAT @ 97%.REPORTED ON AND OFF COUGHING TO BROWNISH PHLEGM.DENIES CHESTPAIN AT THIS TIME.BP 116/77 MMHG,HR 90.WILL CONTINUE TO MONITOR.
--- NOTE | 2016-11-06 04:48 | NUR ---
PT SLEPT WELL.BREATHING EASY AND NON-LABORED.WELL TOLERATED ROOMAIR.BREATHING TX GIVEN BY RT ORDERED.NORCO 7.5 MG PO ADMINISTERD FOR BLE PAIN WITH GOOD RELIEF.ALL NEEDS MET.WILL CONTINUE TO MONITOR.
[2016-11-06 05:41] VITALS: BP 131/93
[2016-11-06 06:46] LABS: CALCIUM 8.3 mg/dL (8.5-10.1); CARBON DIOXIDE 32.8 mmol/L (21-32); CHLORIDE SERUM 101 mmol/L (98-107); CREATININE SERUM 0.8 mg/dL (0.7-1.3); GFR1 > 60 mL/min; GLUCOSE SERUM 161 mg/dL (74-106); MAGNESIUM 1.7 mg/dL (1.8-2.4); POTASSIUM SERUM 4.4 mmol/L (3.5-5.1); SODIUM SERUM 138 mmol/L (136-145)
--- NOTE | 2016-11-06 08:00 | NUR ---
RECEIVED PT IN BED RESTING. PT IS STABLE AND DENIES ANY PAIN. PT WAS ASSESSED AND DOCUMENTED. SAFETY PRECAUTIONS ARE IN PLACE. WILL CONTINUE TO MONITOR.
[2016-11-06 09:20] VITALS: BP 125/84
--- NOTE | 2016-11-06 09:30 | NUR ---
INFORMED ABOUT PT PT=34.4, INR=3.3 ,PTT 34.2 AND ALSO REMIND HIM PT TAKES COUMADIN PO AT HOME.
--- NOTE | 2016-11-06 10:00 | NUR ---
AND RESIDENTS DID ROUNDS. EXPLAINED THE PLAN OF CARE.
--- NOTE | 2016-11-06 10:55 | NUR ---
PT STATED HE IS LIGHT HEADED AND HE THINK HIS SUGAR IS LOW. CHECKED BLOOD SUGAR, IT IS 108 AND CHECKED PT VITAL SIGNS. TQ=638/93 AND HR 87, SPO2 97% RA AND RESP=18, TEMP=98. DENIES PAIN. PROVIDED PUDDING AND AN APPLE JUICE. WILL MONITOR.
--- NOTE | 2016-11-06 11:20 | NUR ---
PT STATED HE DOESNOT FEEL LIGHT HEADED ANY MORE. NO SOB NOTED. STABLE.
--- NOTE | 2016-11-06 12:00 | NUR ---
PT IS SITTING AND RESTING IN BED. HE IS EATING LUNCH, PLEASENTLY. PT STABLE AND NO SOB NOTED AT THIS TIME.
[2016-11-06 13:59] VITALS: BP 111/73
--- NOTE | 2016-11-06 17:30 | NUR ---
PT REQUESTED NICOTIN PATCH, INFORMED ABOUT THAT.
--- NOTE | 2016-11-06 19:15 | NUR ---
PT RESTING IN BED, REMAINS STABLE. GAVE REPORT TO NEXT SHIFT NURSE.
--- NOTE | 2016-11-06 20:11 | NUR ---
REC'D PT FROM DAY NURSE. AAOX4. LAYING IN BED COMFORTABLY. NO DISTRESS NOTED AT THIS TIME. DENIES PAIN. TELE #51. LUNG SOUNDS ARE CTA. NO SOB. BREATHING EVEN AND UNLABORED. ABD SOFT AND ACTIVE. LBM WAS 11/06/16. NO EDEMA NOTED. IV ACCESS INTACT AND PATENT. WILL CONT TO MONITOR.
--- NOTE | 2016-11-06 21:22 | NUR ---
PT IS C/O OF LEG PAIN 09/15. WILL MEDICATE PER EMAR.
[2016-11-06 21:59] VITALS: BP 123/89
--- NOTE | 2016-11-06 23:47 | NUR ---
ROUNDS MADE, PT IS AWAKE AND WATCHING TV. NO DISTRESS NOTED. NO SOB. BREATHING EVEN AND UNLABORED. WILL CONT TO MONITOR.
[2016-11-07 05:15] VITALS: BP 118/92
--- NOTE | 2016-11-07 05:23 | NUR ---
ROUNDS MADE, PT CURRENTLY ASLEEP AND RESTING WELL IN BED. NO DISTRESS NOTED. BREATHING EVEN AND UNLABORED. WILL CONT TO MONITOR.
[2016-11-07 06:25] LABS: CALCIUM 8.1 mg/dL (8.5-10.1); CARBON DIOXIDE 39.3 mmol/L (21-32); CHLORIDE SERUM 99 mmol/L (98-107); CREATININE SERUM 0.8 mg/dL (0.7-1.3); GFR1 > 60 mL/min; GLUCOSE SERUM 86 mg/dL (74-106); MAGNESIUM 1.8 mg/dL (1.8-2.4); POTASSIUM SERUM 4.1 mmol/L (3.5-5.1); SODIUM SERUM 140 mmol/L (136-145)
--- NOTE | 2016-11-07 06:39 | NUR ---
PT SLEPT PERIODICALLY THROUGHOUT THE SHIFT. NO DISTRESS OR SIGNIFICANT CHANGES NOTED. NO SOB. BREATHING EVEN AND UNLABORED. ALL NEEDS MET AND ATTENDED TO. IV ACCESS INTACT AND PATENT. WILL ENDORSE ALL CONTINUITY CARE TO ONCOMING NURSE.
[2016-11-07 07:07] LABS: BASOPHIL % 0.4 % (0-2); PLATELET COUNT 187 x10^3mcL (130-400); RED CELL DISTRIBUTION WIDTH 16.4 % (11.5-14.5)
--- NOTE | 2016-11-07 07:53 | NUR ---
RECEIVED PT SITTING UP IN BED AWAKE AND ALERT. STATES THAT HE DOESNT FEEL WELL IN GENERAL AND CAN FEEL THE FLUID BUILD UP IN HIS LUNGS BUT REFUSES TO TAKE THE LASIX ANYMORE BECAUSE IT MAKES HIM URINATE A LOT AND SO HE ISNT ABLE TO REST. EDUCATED PT ON THE IMPORTANCE OF MEDICATION COMPLIANCE AND THE PURPOSE OF LASIX AND ITS ACTION. PT IS AWARE BUT STATES THAT HE RATHER DO ANOTHER THOROCENTISIS THEN TAKE THE LASIX. WILL DISCUSS WITH THE MEDICAL TEAM DURING ROUNDS. BED IN LOWEST POSITON. CALL LIGHT WITHIN REACH. WILL CONTINUE TO MONITOR
--- NOTE | 2016-11-07 09:30 | NUR ---
AM ROUNDS DONE. PER DR. BAIN PT WILL CONTINUE WITH CURRENTL PLAN OF CARE. APPARENTLY THE LASIX ORDER WAS PUT IN FOR PM AND WAS DISTRUPTING PT'S SLEEP SINCE HE WAS URINATING SO FREQUENTLY, SO THE ORDER WAS CHANGE TO AM. PT APPEARED RECEPTIVE AND AGREES TO PLAN OF CARE
[2016-11-07 11:01] VITALS: BP 126/82
--- NOTE | 2016-11-07 11:30 | NUR ---
PT IS CURRENTLY ASLEEP AT THIS TIME. NO APAPRENT SIGNS OF ACUTE DISTRESS NOTED. RESPIRATIONS EVEN AND UNLABORED. CALL LIGHT WITHIN REACH. BED IN LOWEST POSITION. WILL CONTINUE TO MONITOR
--- NOTE | 2016-11-07 13:25 | NUR ---
PT C/O HEADACE. STATES THAT IS POSSIBLY FROM LACK OF SLEEP. WAS GIVEN FIORICET PO PRN AND ENCOURAGED TO RELAX AND TAKE DEEP BREATHES. BROUGHT DOWN THE SHADES TO DECREASE STIMULI. WILL CONTINUE TO MONITOR
[2016-11-07 15:11] VITALS: BP 124/82
[2016-11-07 17:40] VITALS: BP 114/82
--- NOTE | 2016-11-07 17:42 | NUR ---
PT C/O HYPOGYCEMIA-LIKE SYMPTOMS (IE. HEADACHE, SHAKINESS, AGGITATION). 1630 BLOOD SUGAR CHECK WAS 99. PT STATES THAT HE HAS HAD THIS FEELING BEFORE WHEN HIS BLOOD SUGAR WAS LOW AND REQUESTED ORANGE JUICE. JUICE GIVEN AND INFORMED PT THAT LUNCH TRAYS ARRIVED ON THE UNIT SO DINNER WOULD BE IN SHORTLY. MOTHER AT BEDSIDE. CALL LIGHT WITHIN REACH. WILL CONTINUE TO MONITOR
--- NOTE | 2016-11-07 19:38 | NUR ---
PT SEEN, RESTING IN BED, ALERT AND ORIENTED, DENIES HEADACHE OR DIZZINESS, BREATHING EVEN AND UNLABORED, NO SOB, LUNG SOUNDS DIMINISHED, ON ROOM AIR WITH NO RESP DISTRESS NOTED, ON TELE#51 NSR, DENIES CHEST PAIN, PULSES PALPABLE, NO EDEMA NOTED, AMBULATORY WITH STEADY GAIT, IVF INFUSING WELL, ABD SOFT AND FLAT WITH ACTIVE BS, NO BM AT THIS TIME, VOIDING FREELY, NO DISTRESS NOTED, WILL KEEP TO MONITOR.
[2016-11-07 21:03] VITALS: BP 121/84
--- NOTE | 2016-11-08 02:24 | NUR ---
ROUNDS MADE, PT ASLEEP, BREATHING EVEN AND UNLABORED ON O2 2L VIA NC WITH NO RESP DISTRESS NOTED, IVF INFUSING WELL, LUNDY DRAINING [place]OD COLOR URINE, AT BEDSIDE, WILL KEEP TO MONITOR.
--- NOTE | 2016-11-08 02:26 | NUR ---
ROUNDS MADE, PT ASLEEP BUT EASILY AROUSABLE, BREATHING EVEN AND UNLABORED, NO SOB OR RESP DISTRESS NOTED, WILL KEEP TO MONITOR.
--- NOTE | 2016-11-08 05:23 | NUR ---
PT ASLEEP BUT EASILY AROUSABLE, SLEPT MOST OF NIGHT, MORNING BLOOD SUGAR-138 MG/DL WITH NO RISS, IVF INFUSING WELL WITH KVO, BREATHING EVEN AND UNLABORED ON ROOM AIR WITH NO RESP DISTRESS NOTED, NO DISTRESS NOTED, WILL KEEP TO MONITOR.
[2016-11-08 05:25] VITALS: BP 111/76
[2016-11-08 07:26] LABS: BASOPHIL % 0.5 % (0-2); PLATELET COUNT 207 x10^3mcL (130-400)
[2016-11-08 07:28] LABS: RED CELL DISTRIBUTION WIDTH 16.6 % (11.5-14.5)
[2016-11-08 07:34] LABS: CALCIUM 8.4 mg/dL (8.5-10.1); CARBON DIOXIDE 32.9 mmol/L (21-32); CHLORIDE SERUM 103 mmol/L (98-107); CREATININE SERUM 0.9 mg/dL (0.7-1.3); GFR1 > 60 mL/min; GLUCOSE SERUM 128 mg/dL (74-106); POTASSIUM SERUM 4.1 mmol/L (3.5-5.1); SODIUM SERUM 139 mmol/L (136-145)
--- NOTE | 2016-11-08 07:50 | NUR ---
RECEIVED PT IN BED, A/A/O X 4, CALM, COOPERATIVE. ON TELE # 51, SHOWING NSR WITH HR 78, DENIES CHEST PAIN OR DISCOMFORT AT THIS TIME. HANNY RADIAL AND PEDAL PULSES PRESENT, NO EDEMA, CAP REFILL < 3 SECS, SCD IN PLACE. BUL / BLL DIMINISHED, CHEST RISING EVENLY, ON R/A, SPO2 97%, DENIES DYSPNEA. ABD SOFT, FLAT, NON-TENDER, NORMOACTIVE BOWEL SOUNDS X 4 QUADS. VOIDS FREELY, NO DYSURIA. AMBULATES WITHOUT GAIT OR BALANCE IMPAIRMENT. SKIN INTACT. DENIES PAIN AT THIS TIME. IV SITE AT [facility], RUNNING NS 10 ML/HR. SIDE RAILS UP X 2, BED IN LOW POSITION, CALL LIGHT WITHIN REACH. WILL CONTINUE TO MONITOR.
--- NOTE | 2016-11-08 09:25 | NUR ---
DR STERLING, RESIDENTS, CHARGE NURSE, AND ASSIGNED NURSE CAME IN TO SEE PT; DR STERLING DISCUSSED PLAN OF CARE FOR PT, INCLUDING DC HOME TODAY; ALL QUESTIONS WERE ANSWERED; PT VERBALIZED UNDERSTANDING.
[2016-11-08 10:39] VITALS: BP 124/87
--- NOTE | 2016-11-08 11:30 | NUR ---
PT IN BED, WATCHING TV. NO RESPIRATORY DISTRESS, PAIN, OR DISCOMFORT. WILL CONTINUE TO MONITOR.
--- NOTE | 2016-11-08 13:30 | NUR ---
PT GIVEN EDUCATION ON DIABETES AND HTN. PT VERBALIZED UNDERSTANDING. NO RESPIRATORY DISTRESS, PAIN, OR DISCOMFORT. PT CONTINUES TO TOLERATE ROOM AIR. WILL CONTINUE TO MONITOR.
[2016-11-08 14:47] VITALS: BP 122/88
[2016-11-08 15:37] VITALS: BP 122/88
--- NOTE | 2016-11-08 16:40 | NUR ---
DISCHARGE INSTRUCTIONS WERE GIVEN. PT IS STABLE. IV REMOVED, TELE MONITOR REMOVED. PT BROUGHT DOWN VIA W/C BY LENDING MANAGER.
--- NOTE | 2016-11-08 16:40 | NUR ---
PT GIVEN DISCHARGE PACKET BY DR MOORE; DISCUSSED CURRENT STAY, MEDICATIONS, PROCEDURES DONE, LAB RESULTS, FUTURE APPOINTMENT, AND TEACHINGS RE: DM2, HTN, NEUROPATHY. ALL QUESTIONS WERE ANSWERED. PT VERBALIZED UNDERSTANDING. ALL ID BANDS WERE REMOVED, TELE MONITOR REMOVED AND RETURNED TO TELE STATION. PT WAS TRANSPORTED VIA W/C TO [facility] [place], AND WAS PICKED UP BY PRIVATE AUTO. PT WAS A/A/O X 4, CALM, COOPERATIVE. NO RESPIRATORY DISTRESS, PAIN, OR DISCOMFORT.
== END 2016-11-08 16:40 | disposition home or self-care (01) | DRG 194 ==
LOC: ED 09:13 → DU 11:19
PROVIDERS: Emergency Medicine; ADMIT Family Medicine Sports Medicine
DX: I50.43 Acute on chronic combined systolic (congestive) and diastolic (congestive) heart failure (principal); E43 Unspecified severe protein-calorie malnutrition; D68.69 Other thrombophilia; E11.65 Type 2 diabetes mellitus with hyperglycemia; T43.621A Poisoning by amphetamines, accidental (unintentional), initial encounter; I42.7 Cardiomyopathy due to drug and external agent; F15.10 Other stimulant abuse, uncomplicated; F12.10 Cannabis abuse, uncomplicated; I34.0 Nonrheumatic mitral (valve) insufficiency; J44.9 Chronic obstructive pulmonary disease, unspecified; E78.5 Hyperlipidemia, unspecified; Z68.23 Body mass index [BMI] 23.0-23.9, adult; F17.210 Nicotine dependence, cigarettes, uncomplicated; Y92.018 Other place in single-family (private) house as the place of occurrence of the external cause; Z91.19 Patient's noncompliance with other medical treatment and regimen
CPT/HCPCS: 36600; 83880; 84439; J1610; J1815; J1940; J7030; J7620; Q0092